=== PATIENT | female | born 1950 | race Caucasian/White ===

== ENCOUNTER 2020-04-03 10:57 | Emergency (ER) | payer MEDICARE, SELFPAY ==
[2020-04-03 11:00] VITALS: BP 172/50; PULSE 94; RESP 16; TEMP 36.1; O2SAT 100; BMI 28.3
--- NOTE | 2020-04-03 11:19 | EKG12_ITS ---
Test Reason : DYSRHYTHMIA Blood Pressure : / mmHG Vent. Rate : 089 BPM Atrial Rate : 089 BPM P-R Int : 158 ms QRS Dur : 096 ms QT Int : 382 ms P-R-T Axes : 033 000 -02 degrees QTc Int : 464 ms Normal sinus rhythm Nonspecific ST abnormality Abnormal ECG Confirmed by JEF DOWNS, VALENTIN ([id number]), clinical editor DONNA BARAJAS ([id number]) on 04/06/2020 9:24:29 AM Referred By: DARCI Confirmed By:VALENTIN FUCHS MD
--- NOTE | 2020-04-03 11:19 | CT_ITS ---
STUDY: CT BRAIN WITHOUT CONTRAST REASON FOR EXAM: Female, 70 years old. Left hand numbness RADIATION DOSAGE (If Supplied By Facility): CTDIvol = ( 44.99 ) mGy, DLP = ( 812.98 ) mGycm TECHNIQUE: Transaxial CT imaging of the brain was performed without administration of intravenous contrast material. Individualized dose optimization techniques were used for this CT. COMPARISON: None. FINDINGS: There is no acute bleed or infarct. There are mild chronic ischemic changes. The ventricles are normal in configuration. There is no hydrocephalus. The visualized paranasal sinuses are clear. The mastoid air cells are well aerated. There is no skull fracture. CT/Brain/Head without Contrast IMPRESSION: No acute intracranial abnormality. Mild chronic ischemic change. Electronically Signed: Obed Gresham, at 12:13 EDT Tel , Service support ,
--- NOTE | 2020-04-03 11:31 | NURSING ---
NO OLD EKGS
[2020-04-03] MEDS: 0.9% Normal Saline 1,000 ML 150 ML IV (11:38)
[2020-04-03 11:43] LABS: Absolute Lymphocyte Count 1.76 X10^3/uL (0.83-4.51); Absolute Neutrophil Count 5.8 X10^3/uL (2.0-7.7); Basophil# 0.08 X10^3/uL; Eosinophil# 0.08 X10^3/uL; Hematocrit 38.4 % (37-47); Hemoglobin 12.8 g/dL (12.0-15.0); Lymphocyte # 1.76 X10^3/ul (4.0); Lymphocyte % 21.1 % (19-41); Mean Corp Hgb Conc 33.3 g/dL (32-36); Mean Corpuscular Hgb 29.2 pg (27.0-32.0); Mean Corpuscular Volume 87.5 fL (81-99); Mean Platelet Vol. 9.2 fl (6.2-12.0); Monocyte# 0.65 X10^3/uL; Monocyte% 7.8 % (0-10); NRBC Flagged by Analyzer 0 % (0-5); Neutrophil # 5.76 X10^3/uL (2.7-7.7); Neutrophil % 68.9 % (47-70); Platelet Count 398 K/mm3 (150-450); RBC Distribution Width SD 41.6 fl (35.1-43.9); Red Blood Count 4.39 M/mm3 (4.2-5.4); White Blood Count 8.4 K/mm3 (4.4-11.0)
--- NOTE | 2020-04-03 11:48 | ED.DCSUM_ITS ---
- ER Visit Summary Date of Service: 04/03/20 Chief Complaint: [Facial pain and numbness and tingling to left hand] History of Present Illness: The patient is a 70 F [presents to the emergency department with complaint of some pressure in her head this morning after taking some Advil. Patient states that she was seen by Dr. Jack Fuentes 2 days ago who is been seeing her for some sinus issues over the last several years and has had her on Flonase. 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 Patient also states that she has been having intermittent numbness and tingling to the left hand over the last 2 weeks. Usually involvement is of the small finger, ring finger, and middle finger. She denies any weakness in the extremities. She denies any difficulty with speech. She denies involvement of the lower extremities. She denies any neck pain. She denies any elbow pain. Patient states that she gets very nervous. She has history of high cholesterol, hypothyroidism and vertigo.] Patient denies any chest pain or shortness of breath. Physical Examination: [HEENT-PERRLA, EOMI. Cranial nerves II through XII grossly intact. TMs clear. Mucous membranes moist. No adenopathy. She does have some mild tenderness over the right TMJ on exam. Cardiovascular-regular rate and rhythm without murmur or ectopy Lungs-clear to auscultation, chest wall stable without crepitus or subcu emphysema Abdomen-normoactive bowel sounds, soft, nontender, no rebound or rigidity, no peritoneal signs. Neuro kwsb-[id number]-phgr and heel joyner testing within normal limits, negative Romberg, negative for drift, fundi benign. Patient NIH stroke scale is 0. Extremities-intact ?4, normal range of motion, normal pulses, atraumatic] Test Results: [EKG obtained on arrival showed sinus rhythm with ventricular rate of 89 bpm with some nonspecific ST changes.] CBC with it was normal. Chemistries unremarkable other than a slightly depressed sodium of 130. Troponin was less than 0.015. CT scan of the brain showed some mild chronic ischemic changes otherwise nothing acute. Emergency Department Course and Treatment: [Patient had an IV line established on arrival. Patient was placed on a director of content and programming.] Treatment Plan: [Patient noted that the symptoms after taking Advil and she took it on an empty stomach. They are wondering if symptoms are related to the Advil. As far as the paresthesias in the left hand they have been intermittent for weeks and I suspect likely a ulnar nerve impingement or neuropathy. I do not feel patient is having stroke symptoms. Patient advised to follow-up with her ENT physician within the next 3 to 5 days. She is advised to take any anti- inflammatories with food.] Disposition: [Discharged home in stable condition] Impression: [Paresthesias TMJ] This note was generated with [employer] dictation software. It may contain incorrect words, spelling, and punctuation that were not noted in review of the chart prior to signing ED Disposition - Plan for ED Patient: Referrals: Germán Amado DO [Primary Care Provider] -
[2020-04-03 11:58] LABS: Anion Gap 8 (5-15); BUN 9 mg/dL (7-18); BUN/Creat Ratio 9.7 RATIO (10-20); Chloride 94 mmol/L (98-107); Creatinine, Serum 0.93 mg/dL (0.55-1.02); EST Glomerular Filtration Rate 63 mL/min (>60); Est Glom Filt Rate - Afr Amer 76 mL/min (>60); Glucose 100 mg/dL (74-106); Potassium 3.6 mmol/L (3.5-5.1); Sodium Level 130 mmol/L (136-145)
--- NOTE | 2020-04-03 12:37 | ED.DEP ---
ED Disposition - Plan for ED Patient: Instructions: ED PERIPHERAL NEUROPATHY, ED TMJ Syndrome Referrals: Germán Amado DO [Primary Care Provider] - 3-5 Days
[2020-04-03 12:54] VITALS: BP 158/82; PULSE 80; RESP 16; O2SAT 99
--- NOTE | 2020-04-03 12:55 | ED.RN ---
REVIEWED D/C INSTRUCTIONS, FOLLOW UP CARE, AND S/S THAT WOULD WARRANT A RETURN TO THE ED WITH PT. PT VERBALIZED AN UNDERSTANDING, ALL QUESTIONS ADDRESSED. PT SKIN P/W/D, RESP EVEN AND UNLABORED, PT A&O X 3, NO DISTRESS NOTED. PT AMBULATED OUT OF ED, GAIT STEADY.
== END 2020-04-03 12:56 | disposition home or self-care (01) ==
PROVIDERS: Emergency Provider Emergency Medicine; PCP Family Medicine
DX: R20.2 Paresthesia of skin (principal); M26.609 Unspecified temporomandibular joint disorder, unspecified side; E03.9 Hypothyroidism, unspecified; E78.00 Pure hypercholesterolemia, unspecified; Z79.82 Long term (current) use of aspirin; Z79.899 Other long term (current) drug therapy
CPT/HCPCS: 70450; 80048; 84484; 85025; 93005; 96360; 99283; J7030; A4216